=== PATIENT | male | born 1970 | race Caucasian/White ===

== ENCOUNTER 2020-11-18 08:41 | Inpatient (IN) ==
[2020-11-18] MEDS ORDERED: *HR* HYDROmorphone PF 0.5 MG/0.5 ML SYRINGE IVP PRN (09:10)
[2020-11-18] MEDS ORDERED: Ondansetron ODT 4 MG TAB.RAPDIS SL ONE (09:10)
[2020-11-18] MEDS ORDERED: *HR* OxyCODONE Immed Rel 5 MG TABLET PO PRN (09:10)
[2020-11-18] MEDS ORDERED: *HR* FentaNYL (PF) 100 MCG/2 ML VIAL IVP PRN (09:10)
[2020-11-18] MEDS ORDERED: CeFAZolin Syr 2,000MG/20 ML 2,000 MG/20 ML SYRINGE IVPB ONE (09:12)
[2020-11-18] MEDS ORDERED: Ringers Solution, Lactated 1,000 ML IVC SCH (09:15)
[2020-11-18] MEDS ORDERED: *HR* Propofol 200 MG/20 ML VIAL IVP ONE (09:32)
[2020-11-18] MEDS ORDERED: Lidocaine -MPF 4% 5 ML AMPUL ONE ×2 (09:34→11:06)
[2020-11-18] MEDS ORDERED: Lidocaine -MPF 2% 2 ML VIAL ONE (09:37)
[2020-11-18] MEDS ORDERED: *HR* Midazolam HCl 2 MG/2 ML VIAL ONE (09:38)
[2020-11-18] MEDS ORDERED: *HR* FentaNYL (PF) 100 MCG/2 ML VIAL ONE (09:38)
[2020-11-18] MEDS ORDERED: *HR* Rocuronium Bromide 50 MG/5 ML VIAL ONE (09:39)
[2020-11-18] MEDS ORDERED: *HR* Succinylcholine 200 MG/10 ML VIAL IVP ONE (09:39)
[2020-11-18] MEDS ORDERED: Ondansetron 4 MG/2 ML VIAL ONE (09:42)
[2020-11-18] MEDS ORDERED: Sugammadex Sodium 200 MG/2 ML VIAL IV ONE (12:13)
[2020-11-18] MEDS ORDERED: Ketorolac 30 MG/ML VIAL ONE (12:50)
[2020-11-18] MEDS ORDERED: *HR* HYDROcodone/Acet 5/325 mg TABLET PO PRN (13:42)
[2020-11-18] MEDS ORDERED: Ondansetron 4 MG/2 ML VIAL IVP PRN (13:42)
[2020-11-18] MEDS: 0.9 % Sodium Chloride 1,000 ML IVC SCH (14:38)
[2020-11-18] MEDS: Gabapentin 300 MG CAPSULE PO SCH ×2 (14:38→21:17)
[2020-11-18] MEDS: *HR* Heparin 5,000 UNIT/ML VIAL SQ SCH ×2 (14:38→21:17)
[2020-11-18] MEDS: Ketorolac 15 MG/ML VIAL IVP SCH (18:00)
[2020-11-18] MEDS: Famotidine 20 MG TABLET PO SCH (21:17)
[2020-11-18] MEDS: Sennosides/Docusate Sodium TABLET PO SCH (21:17)
[2020-11-19] MEDS: Ketorolac 15 MG/ML VIAL IVP SCH ×3 (00:24→11:20)
[2020-11-19] MEDS: 0.9 % Sodium Chloride 1,000 ML IVC SCH (03:46)
[2020-11-19] MEDS: *HR* Heparin 5,000 UNIT/ML VIAL SQ SCH (06:03)
[2020-11-19] MEDS: Famotidine 20 MG TABLET PO SCH (07:57)
[2020-11-19] MEDS: Gabapentin 300 MG CAPSULE PO SCH (07:57)
[2020-11-19] MEDS: Sennosides/Docusate Sodium TABLET PO SCH (07:57)
[2020-11-19 11:19] VITALS: BP 137/80; PULSE 65; TEMP 98.6; O2SAT 96
== END 2020-11-19 14:18 | disposition home or self-care (01) | DRG 165 ==
LOC: SAMDAY 08:41 → 2NNU 13:40
PROVIDERS: ADMIT Thoracic Surgery (Cardiothoracic Vascular Surgery); ATTEND Thoracic Surgery (Cardiothoracic Vascular Surgery)